=== PATIENT | female | born 1960 | race Caucasian/White ===

== ENCOUNTER 2016-06-13 11:43 | Emergency (ER) | payer MEDICARE, MEDICAID ==
[2016-06-13 13:17] VITALS: BP 156/85
--- NOTE | 2016-06-13 13:36 | UC ---
Respiratory Complaint HPI - HPI Summary HPI Summary: 4 days of worsening cough, wheeze-concerned about Acute Bronchitis has not used Albuterol though this episode of illness--temperature has not been over 99.5 - History of Current Complaint Chief Complaint: UCRespiratory Stated Complaint: URI Time Seen by Provider: 06/13/16 13:29 Hx Obtained From: Patient ?: No Onset/Duration: Gradual Onset, Lasting Days - 4, Still Present Timing: Constant Severity Initially: Mild Severity Currently: Moderate Character: Cough: Nonproductive Aggravating Factors: Deep Breaths, Recumbent Position Alleviating Factors: Nothing Associated Signs And Symptoms: Positive: Chills, Pleuritic Chest Pain, URI, Nasal Congestion, Sinus Discomfort - Allergies/Home Medications Allergies/Adverse Reactions: Allergies Allergy/AdvReac Type Severity Reaction Status Date / Time Erythromycin Allergy Severe ITCHING Verified 08/11/14 06:21 AND VOMITING Penicillins Allergy Severe Facial Verified 08/11/14 06:21 Redness/Flushing Doxycycline Allergy Nausea And Verified 08/11/14 06:21 Vomiting NSAIDs Allergy AVOID DUE Verified 08/11/14 06:21 TO HX OF STOMACH ULCER Home Medications: Home Medications Pseudoephedrine-Guaifenesin [Mucinex D 60-600 mg] 1 tab PO 06/13/16 [History] PMH/Surg Hx/FS Hx/Imm Hx Previously Healthy: No Endocrine History Of: Denies: Diabetes, Thyroid Disease Cardiovascular History Of: Reports: Hypertension - ON MEDS Denies: Cardiac Disorders Respiratory History Of: Reports: COPD, Bronchitis - LAST TIME 2 YEARS AGO Denies: Asthma GI/ History Of: Reports: Ulcer - HX OF Psychological History Of: Reports: Anxiety - ON MEDS, Depression - ON MEDS Cancer History Of: Denies: Breast Cancer - Surgical History Surgical History: Yes Surgery Procedure, Year, and Place: 2008 [place], [facility] [place] LEFT ANKLE SURGERY (PLATE & 7 SCREWS), [facility] [place] LEFT [place]KLE [place], [place]. 2010 THROAT POLY[place], [facility] [place]. 2010 LAPAROSCOPIC CHO[place]CYSTECTOMY, [facility] [place] - Family History Known Family History: Positive: None Family History: no report of cardiovascular issues in family lineage - Social History Occupation: Unemployed Lives: With Family Alcohol Use: None Substance Use Type: None Smoking Status (MU): Former Smoker Type: Cigarettes Amount Used/How Often: 1PCK/DAY Length of Time of Smoking/Using Tobacco: 40 Have You Smoked in the Last Year: No When Did the Patient Quit Smoking/Using Tobacco: 06/18/2012 Household Exposure Type: Cigarettes Review of Systems Constitutional: Negative Skin: Negative Eyes: Negative ENT: Nasal Discharge Respiratory: Cough Cardiovascular: Negative Gastrointestinal: Negative Genitourinary: Negative Motor: Negative Neurovascular: Negative Musculoskeletal: Negative Neurological: Negative Psychological: Negative All Other Systems Reviewed And Are Negative: Yes Physical Exam Triage Information Reviewed: Yes Appearance: Well-Nourished, Ill-Appearing - mild, Obese Vital Signs: Initial Vital Signs Temp 99.2 F 06/13/16 13:14 Pulse 115 06/13/16 13:14 Resp 18 06/13/16 13:14 BP 156/85 06/13/16 13:14 Pulse Ox 96 06/13/16 13:14 Vital Signs Reviewed: Yes Eye Exam: Normal Eyes: Positive: Conjunctiva Clear ENT Exam: Normal ENT: Positive: Hearing grossly normal, Nasal congestion, Nasal drainage, TMs normal. Negative: Tonsillar swelling, Tonsillar exudate, Trismus, Muffled/ hoarse voice Neck exam: Normal Neck: Positive: Supple, Nontender, No Lymphadenopathy Respiratory Exam: Normal Respiratory: Positive: Chest non-tender, Lungs clear, No respiratory distress, No accessory muscle use, Wheezing Cardiovascular Exam: Normal Cardiovascular: Positive: No Murmur, Pulses Normal, Brisk Capillary Refill, Tachycardia Musculoskeletal Exam: Normal Musculoskeletal: Positive: Strength Intact, ROM Intact, No Edema Neurological Exam: Normal Neurological: Positive: Alert, Muscle Tone Normal Psychological Exam: Normal Skin Exam: Normal UC Diagnostic Evaluation - Laboratory O2 Sat by Pulse Oximetry: 96 Respiratory Course/Dx - Course Course Of Treatment: albuterol, zithromax, prednisone,robitussin & codiene, increase fluids follow with pcp - Differential Dx/Diagnosis Differential Diagnosis/HQI/PQRI: Asthma, Bronchitis, Lower Resp Infection, Sinusitis Provider Diagnoses: Acute exacerbation of COPD, Bronchitis Discharge - Discharge Plan Condition: Stable Disposition: HOME Prescriptions: Albuterol HFA INHALER* [Ventolin HFA Inhaler*] 2 puff INH Q4H PRN #1 mdi PRN Reason: cough Azithromycin TAB* [Zithromax TAB (Z-GAGAN) 250 mg #6 tabs] 2 tab PO .TODAY, THEN 1 DAILY #1 gagan guaiFENesin/CODIEN 100MG-10MG* [Robitussin AC 100Mg-10Mg*] 10 ml PO Q4H PRN #90 ml MDD 40ml PRN Reason: cough predniSONE TAB* [Deltasone TAB*] 10 mg PO DAILY #26 tab Patient Education Materials: How to Use a Metered-Dose Inhaler (ED), Acute Bronchitis (ED), Bronchospasm (ED) Referrals: Singh Sánchez MD [Medical Doctor] - 5 Days
== END 2016-06-13 13:55 | disposition home or self-care (01) ==
LOC: UCEAST 11:43
DX: J44.1 Chronic obstructive pulmonary disease with (acute) exacerbation (principal); J40 Bronchitis, not specified as acute or chronic; Z88.1 Allergy status to other antibiotic agents; Z88.6 Allergy status to analgesic agent; Z88.0 Allergy status to penicillin; Z87.891 Personal history of nicotine dependence
CPT/HCPCS: 99212; G0463

== ENCOUNTER 2018-02-26 14:10 | Emergency (ER) | payer MEDICARE, MEDICAID ==
[2018-02-26 14:24] VITALS: BP 165/79
[2018-02-26] MEDS ORDERED: NS 0.9% 1000 ML* 1,000 ML ONE (14:58)
[2018-02-26] MEDS ORDERED: LORazepam INJ* 2 MG/ML 1 ML VIAL IV PUSH ONE (14:58)
--- NOTE | 2018-02-26 15:07 | UC ---
Abdominal Pain Female HPI - HPI Summary HPI Summary: The patient is a 57 yo female who presents with the onset of 7/10 crampy abd pain that started about 4AM She has had 8-10 episodes of diarrhea and has had one episode of vomiting About 11 AM she developed left arm numbness and weakness as well as mild left sided CP. The patient normally takes 2 mg of Xanax at bedtime and has done so for about the last 6 months. Last night she decided not to take her Xanax. She denies any headache. She has not had any fever or chills. He states that she feels very anxious. She has had no UTI symptoms. - History of Current Complaint Chief Complaint: UCGeneralIllness Stated Complaint: ARM NUMB DISORIENTED Time Seen by Provider: 02/26/18 14:24 Hx Obtained From: Patient Onset/Duration: Gradual Onset, Lasting Hours Timing: Constant Severity Initially: Moderate Severity Currently: Moderate Pain Intensity: 7 Pain Scale Used: 0-10 Numeric Location: Diffuse Character: Cramping Aggravating Factor(s): Food Alleviating Factor(s): Nothing Associated Signs and Symptoms: Positive: Dizzy, Nausea, Vomiting, Diarrhea Allergies/Adverse Reactions: Allergies Allergy/AdvReac Type Severity Reaction Status Date / Time doxycycline Allergy Intermediate Nausea Verified 02/26/18 14:27 erythromycin base Allergy Intermediate ithching Verified 02/26/18 14:26 vomitting NSAIDS (Non-Steroidal Allergy Intermediate avoid Verified 02/26/18 14:27 Anti-Inflamma ulcers Penicillins Allergy Intermediate facial Verified 02/26/18 14:26 redness vomitting Home Medications: Home Medications ALPRAZolam [Xanax] 1 mg PO TID MDD 3 02/26/18 [History Confirmed 02/26/18] Vortioxetine Hydrobromide [Trintellix] 5 mg PO DAILY WITH MEAL 02/26/18 [ History Confirmed 02/26/18] PMH/Surg Hx/FS Hx/Imm Hx Previously Healthy: Yes Cardiovascular History: Hypertension GI/ History: Other Other GI/ History: chronic post parandial abd pain Psychological History: Anxiety, Depression - Surgical History Surgical History: Yes Surgery Procedure, Year, and Place: 2008 HYSTERECTOMY, [facility] [place]. 2009 LEFT ANKLE SURGERY (PLATE & 7 SCREWS), [facility] [place]. 2009 LEFT ANKLE SURGERY, [place]. 2010 THROAT POLYPS REMOVED, [facility] [place]. 2010 LAPAROSCOPIC CHOLECYSTECTOMY, [facility] [place] - Family History Known Family History: Positive: Hypertension Family History: no report of cardiovascular issues in family lineage - Social History Alcohol Use: None Substance Use Type: None Smoking Status (MU): Former Smoker Type: Cigarettes Amount Used/How Often: 1PCK/DAY Length of Time of Smoking/Using Tobacco: 40 Have You Smoked in the Last Year: No When Did the Patient Quit Smoking/Using Tobacco: 06/18/2012 Household Exposure Type: Cigarettes Review of Systems Constitutional: Negative Skin: Negative Eyes: Negative ENT: Negative Respiratory: Negative Cardiovascular: Chest Pain Gastrointestinal: Abdominal Pain, Vomiting, Diarrhea, Nausea Genitourinary: Negative Motor: Negative Neurovascular: Negative Musculoskeletal: Negative Neurological: Weakness - left arm, Numbness - left arm Psychological: Anxious Is Patient Immunocompromised?: Yes All Other Systems Reviewed And Are Negative: Yes Physical Exam Triage Information Reviewed: Yes Appearance: Well-Appearing, No Pain Distress, Well-Nourished Vital Signs: Initial Vital Signs Temp 99.1 F 02/26/18 14:15 Pulse 105 02/26/18 14:15 Resp 24 02/26/18 14:15 BP 165/79 02/26/18 14:15 Pulse Ox 99 02/26/18 14:15 Eyes: Positive: Conjunctiva Clear ENT: Positive: Hearing grossly normal. Negative: Nasal congestion, Nasal drainage, Trismus, Muffled voice, Hoarse voice, Dental tenderness, Sinus tenderness Neck: Positive: Supple, Nontender, No Lymphadenopathy Respiratory: Positive: Lungs clear, Normal breath sounds, No respiratory distress Cardiovascular: Positive: RRR, No Murmur, Pulses Normal Abdomen Description: Positive: Soft. Negative: Nontender - diffusely tender, CVA Tenderness (R), CVA Tenderness (L) Bowel Sounds: Positive: Present Musculoskeletal: Positive: ROM Intact, No Edema Neurological: Positive: Alert Psychological Exam: Normal Skin Exam: Normal Diagnostics - Laboratory Diagnostic Studies Completed/Ordered: BS 167 - EKG Cardiac Rate: NL Cardiac Rhythm: Sinus: Normal, AFib: Normal, Junctional: Normal, LBBB: Normal, Other Rhythm: Normal Ectopy: None ST Segment: Normal Abd Pain Female Course/Dx - Course Course Of Treatment: D/W Shon Morton. To [facility] [place] er via EMS - Differential Dx/Diagnosis Provider Diagnoses: acute abdominal pain and diarrhea. vomiting. left arm numbness and subjective weakness Discharge - Sign-Out/Discharge Documenting (check all that apply): Patient Departure All imaging exams completed and their final reports reviewed: No Studies - Discharge Plan Condition: Stable Disposition: TRANS HIGHER LVL OF CARE FAC Referrals: Sam De Leon MD [Primary Care Provider] - - Billing Disposition and Condition Condition: STABLE Disposition: Trans Higher Lvl of Care Fac
== END 2018-02-26 15:40 | disposition short-term general hospital (02) ==
LOC: UCEAST 14:10
DX: R10.9 Unspecified abdominal pain (principal); R11.10 Vomiting, unspecified; R20.0 Anesthesia of skin; R19.7 Diarrhea, unspecified; R53.1 Weakness; Z88.0 Allergy status to penicillin; Z88.1 Allergy status to other antibiotic agents; Z88.6 Allergy status to analgesic agent; I10 Essential (primary) hypertension; Z87.891 Personal history of nicotine dependence
CPT/HCPCS: 93005; 96374; 99213; G0463; J2060

== ENCOUNTER 2018-02-26 16:02 | Emergency (ER) | payer MEDICARE, MEDICAID ==
--- NOTE | 2018-02-26 16:32 | ED ---
Complex/Multi-Sys Presentation - HPI Summary HPI Summary: This patient is a 57 year old female BIBA to [facility] with a chief complaint of panic attack [employer]. Patient states that she stopped taking her Xanax last night after taking it for months and experienced withdrawal symptoms. Patient states that she woke up around 0400 feeling nauseous ill, but ignored the sx and went to get a cup of coffee. Afterwards, she felt more ill and experienced diarrhea 3 -4 times. The pain is rated 7/10 in severity. Symptoms aggravated by nothing. Symptoms alleviated by nothing. Patient additionally reports dizziness, nausea, vomiting, diarrhea, diaphoresis. Patient states that she feels much improved after being hydrated. - History Of Current Complaint Chief Complaint: EDGeneral Time Seen by Provider: 02/26/18 16:23 Hx Obtained From: Patient Onset/Duration: Lasting Days, Still Present Timing: Constant Severity Currently: Mild Severity Initially: Moderate Aggravating Factor(s): N/A Alleviating Factor(s): N/A Associated Signs And Symptoms: Positive: Other - dizziness, nausea, vomiting, diarrhea, diaphoresis - Allergies/Home Medications Allergies/Adverse Reactions: Allergies Allergy/AdvReac Type Severity Reaction Status Date / Time doxycycline Allergy Intermediate Nausea Verified 02/26/18 14:27 erythromycin base Allergy Intermediate ithching Verified 02/26/18 14:26 vomitting NSAIDS (Non-Steroidal Allergy Intermediate avoid Verified 02/26/18 14:27 Anti-Inflamma ulcers Penicillins Allergy Intermediate facial Verified 02/26/18 14:26 redness vomitting PMH/Surg Hx/FS Hx/Imm Hx Previously Healthy: No Endocrine/Hematology History: Denies: Hx Diabetes, Hx Thyroid Disease Cardiovascular History: Reports: Hx Hypertension - ON MEDS, Other Cardiovascular Problems/Disorders - NUCLEAR STRESS TEST DONE 2-3 MONTHS AGO, STATES NO PROBLEMS Respiratory History: Reports: Hx Chronic Obstructive Pulmonary Disease (COPD), Hx Sleep Apnea - TEST 2 WEEKS AGO, Other Respiratory Problems/Disorders - HX COPD Denies: Hx Asthma GI History: Reports: Hx Gastroesophageal Reflux Disease - CONTROL WITH MEDS, Hx Irritable Bowel, Hx Ulcer - HX OF, Other GI Disorders - Hx ulcers Musculoskeletal History: Reports: Hx Arthritis - GENERALIZED, Other Musculoskeletal History - SEVERE RIGHT SHOULDER PAINS - UNKNOWN ETIOLOGY Sensory History: Denies: Hx Contacts or Glasses, Hx Hearing Aid Opthamlomology History: Denies: Hx Contacts or Glasses Psychiatric History: Reports: Hx Anxiety - ON MEDS, Hx Depression - ON MEDS - Cancer History Cancer Type, Location and Year: Cervical cancer/hysterectomy Hx Chemotherapy: No Hx Radiation Therapy: No - Surgical History Surgery Procedure, Year, and Place: [place] [facility] [place]KLE [place] (PLATE & 7 SCREWS), [facility] [place] LEFT [place]KLE [place] [facility] [place] LAP[place]IC [place] [facility] [place]x Anesthesia Reactions: No Infectious Disease History: No Infectious Disease History: Denies: Hx Hepatitis, Hx Human Immunodeficiency Virus (HIV), Traveled Outside the [place] in Last 30 Days - Family History Known Family History: Positive: Hypertension Family History: no report of cardiovascular issues in family lineage - Social History Alcohol Use: None Hx Substance Use: No Substance Use Type: Reports: None Hx Tobacco Use: Yes Smoking Status (MU): Former Smoker Type: Cigarettes Amount Used/How Often: 1PCK/DAY Length of Time of Smoking/Using Tobacco: 40 Have You Smoked in the Last Year: No Review of Systems Positive: Skin Diaphoresis. Negative: Fever Positive: Vomiting, Diarrhea, Nausea Neurological: Other - Dizziness Positive: Other - Panic attack All Other Systems Reviewed And Are Negative: Yes Physical Exam - Summary Physical Exam Summary: Appearance: Well-appearing, Well-nourished, lying in bed comfortably Skin: Warm, dry, no obvious rash Eyes: sclera anicteric, no conjunctival pallor ENT: mucous membranes moist, pharynx appears normal Neck: Supple, nontender Respiratory: Clear to auscultation, no signs of respiratory distress Cardiovascular: Normal S1, S2. No murmurs. Normal distal pulses in tibial and radial bilaterally. Abdomen: Soft, nontender, normal active bowel sounds present Musculoskeletal: Normal, Strength/ROM Intact Neurological: A&Ox3, awake and alert, mentation is normal, speech is fluent and appropriate Psychiatric: affect is normal, does not appear anxious or depressed Triage Information Reviewed: Yes Vital Signs On Initial Exam: Initial Vitals Temp Pulse Resp BP Pulse Ox 98.2 F 68 16 160/71 99 02/26/18 16:14 02/26/18 16:14 02/26/18 16:14 02/26/18 16:14 02/26/18 16:14 Vital Signs Reviewed: Yes Diagnostics - Vital Signs Vital Signs Temp Pulse Resp BP Pulse Ox 02/26/18 16:14 98.2 F 68 16 160/71 99 - Laboratory Lab Statement: Any lab studies that have been ordered have been reviewed, and results considered in the medical decision making process. Complex Multi-Symp Course/Dx Assessment/Plan: This patient is a 57 year old female BIBA to [facility] with a chief complaint of panic attack [employer]. Patient states that she stopped taking her Xanax last night after taking it for months and experienced withdrawal symptoms. Patient will be discharged with a dx of acute diarrhea. Patient is advised to follow up with PCP in 3 days. The patient is agreeable with this plan. Clinically she does not appear volume depleted and I do not believe she requires any laboratory evaluation, nor does she need any IV fluids. The diarrhea appears to be consequent to taking laxatives yesterday, and her withdrawal symptoms are quite mild. - Diagnoses Provider Diagnoses: Diarrhea, Withdrawal from benzodiazepine Discharge - Sign-Out/Discharge Documenting (check all that apply): Patient Departure - Discharge Plan Condition: Good Disposition: HOME Patient Education Materials: Acute Diarrhea (ED) Referrals: Sam De Leon MD [Primary Care Provider] - Additional Instructions: I don't think all your problems are from stopping the xanax. That said, you should not suddenly stop taking xanax if you have been on it for awhile. You should taper the dose down slowly, at least over a couple of weeks. For now get plenty of fluids until the diarrhea starts to subside. - Billing Disposition and Condition Condition: GOOD Disposition: Home - Attestation Statements Document Initiated by Barbara: Yes Documenting Scribe: Denise Amaya Provider For Whom Barbara is Documenting (Include Credential): Sae Peter MD Scribe Attestation: Denise Huggins, scribed for Sae Peter MD on 02/26/18 at 1742. Scribe Documentation Reviewed: Yes Provider Attestation: The documentation as recorded by the Denise hernandez accurately reflects the service I personally performed and the decisions made by me, Sae Peter MD
[2018-02-26 17:49] VITALS: BP 164/79
== END 2018-02-26 17:48 | disposition home or self-care (01) ==
LOC: ED 16:02
DX: F19.230 Other psychoactive substance dependence with withdrawal, uncomplicated (principal); R19.7 Diarrhea, unspecified; I10 Essential (primary) hypertension; J44.9 Chronic obstructive pulmonary disease, unspecified; K21.9 Gastro-esophageal reflux disease without esophagitis; F41.9 Anxiety disorder, unspecified; F32.9 Major depressive disorder, single episode, unspecified; Z87.891 Personal history of nicotine dependence; R10.9 Unspecified abdominal pain; R11.10 Vomiting, unspecified; R20.0 Anesthesia of skin; R53.1 Weakness; Z88.0 Allergy status to penicillin; Z88.1 Allergy status to other antibiotic agents; Z88.6 Allergy status to analgesic agent
CPT/HCPCS: 93005; 96374; 99213; 99282; G0463; J2060

== ENCOUNTER 2018-04-06 10:16 | Day surgery (SDC) | payer MEDICARE, MEDICAID ==
[~2018-04-06 10:16] MED LIST: Buffered Lidocaine 0.9% SYRIN* 5 ML/SYR SYRINGE INTRADERM ONE
[2018-04-06] MEDS ORDERED: DiMENhydriNATE IV* 50 MG/ML VIAL IV PUSH PRN (11:19)
[2018-04-06] MEDS ORDERED: Naloxone* 0.4 MG/ML 1 ML VIAL IV PRN (11:19)
[2018-04-06] MEDS ORDERED: Buffered Lidocaine 0.9% SYRIN* 5 ML/SYR SYRINGE ONE (11:22)
[2018-04-06] MEDS ORDERED: KETAMINE HCL* 50 MG/ML 10 ML VIAL ONE (11:47)
[2018-04-06] MEDS ORDERED: Ondansetron INJ* 2 MG/ML VIAL ONE (11:47)
[2018-04-06] MEDS ORDERED: Midazolam* 1 MG/ML 5 ML VIAL (5 MG) ONE ×2 (11:47→12:07)
[2018-04-06] MEDS ORDERED: Lidocaine 2% PF * 5 ML VIAL ONE (11:47)
[2018-04-06] MEDS ORDERED: Propofol* 10 MG/ML 20 ML BTL IV PUSH ONE ×2 (11:47→12:51)
[2018-04-06] MEDS ORDERED: fentaNYL* 50 MCG/ML 2 ML VIAL (100 MCG VIAL) ONE (11:47)
[2018-04-06 13:29] VITALS: BP 122/68
--- NOTE | 2018-04-07 03:34 | PRO ---
CC: Dr. Sam De Leon. * DATE OF PROCEDURE: 04/06/18 [facility] PROCEDURE: Colonoscopy with polypectomy. REFERRING PROVIDER: Dr. Sam De Leon. INDICATION: Longstanding abdominal pain, particularly in lower left quadrant, constipation, gas, bloating. MEDICATIONS GIVEN: By Anesthesia. DESCRIPTION OF PROCEDURE: Full disclosure of risks were reviewed with the patient as detailed on the consent form. The patient was placed in the left lateral decubitus position and monitored with continuous pulse oximetry, capnography, interval blood pressure monitoring, and direct observation. After anorectal examination was performed, the adult colonoscope was inserted into the rectum and advanced under direct vision to the level of the cecum. The cecum was slowly inflated allowing a complete view including the medial wall between the IC valve and the appendiceal orifice. Quality of the prep was very good. A careful inspection was made as the colonoscope was withdrawn. A retroflexed view of the rectum was performed. Findings and interventions are described below. The patient tolerated the procedure well and was recovered in the GI recovery area. FINDINGS: Anorectal exam was unremarkable. Scope was inserted into the rectum and slowly advanced through the left colon. The patient was quite uncomfortable and required increased sedation during examination of the left colon. There was sensation of mild resistance, although there was never a partial or fixed loop encountered. Suspect adhesion-related disease in the pelvis contributed to the difficult exam in the left colon. With the use of abdominal pressure, scope was able to advance throughout the remainder of the colon to the level of the cecum. The colonic mucosa was then closely examined as the scope was withdrawn. There was an 8- to 10-mm colon polyp in the ascending colon, which was removed with cold snare polypectomy. Scope was then further withdrawn and there were 2 transverse colon polyps. One of these measured 6 mm and was removed with cold snare polypectomy. The other was 3 mm and was removed with jumbo biopsy forceps. The scope was withdrawn into the sigmoid where mild/moderate diverticular disease was noted. Again, the patient was quite uncomfortable in this area, despite having received a significant amount of anesthesia she did stir at times and appeared uncomfortable. There was a 2-mm rectal polyp, that was removed with jumbo biopsy forceps. Retroflexion in the rectum noted very small hypertrophied anal papilla. No significant hemorrhoids. Scope was then withdrawn from the patient. The patient tolerated the procedure well and was recovered in the GI recovery area. IMPRESSION: 1. Four colon polyps removed as above. 2. [id number] sigmoid diverticulosis. 3. Difficult colonoscopy, particularly in the left colon. There was mild amount of resistance and tightness as the scope moved through the left colon suggestive of possible pelvic adhesion disease related to her prior hysterectomy. It is possible that this is contributing to some of her chronic abdominal pain. FOLLOWUP: 1. Await pathology. 2. Repeat colonoscopy in 3 to 5 years depending on pathology. We will recommend repeat colonoscopy be performed with anesthesia as well. 3. The patient will follow up in clinic. We will discuss if additional workup is needed or plan to help alleviate some of her chronic GI symptoms. Suspect this may include improving her constipation management. May also consider referral for anorectal manometry as she described sitting on the toilet multiple times a day to strain even though she will often pass softer stools. She described it as an incomplete sense of evacuation. This clinical history does raise some suspicion for pelvic floor dyssynergia. Thank you very much for this referral. [id number]/[id number] #: [id number] ALMA ROSA
--- NOTE | 2018-04-07 11:02 | PRO ---
CC: Sam De Leon MD * DATE OF PROCEDURE: 04/06/18 [facility] PROCEDURE: EGD with biopsy. REFERRING PROVIDER: Sam De Leon MD. INDICATION: Abdominal pain, gas, bloating, constipation. MEDICATIONS GIVEN: Anesthesia Services. DESCRIPTION OF PROCEDURE: Full disclosure of risks was reviewed with the patient as detailed on the consent form. The patient was placed in the left lateral decubitus position and monitored with continuous pulse oximetry, interval blood pressure monitoring, and direct observation. A bite-block was placed between the teeth. An Olympus gastroscope was then inserted into the patient's mouth and advanced down the esophagus, into the stomach, and into the distal duodenum. Findings are detailed below. FINDINGS: Esophagus was a normal tubular structure without rings, strictures, or masses. GE junction was regular and occurred at 34 cm. There was a hiatal hernia with the top of the gastric folds occurring at 38 cm. Scope was advanced into the stomach. Stomach was examined in the forward and retroflex views. There was mild gastric antral erythema. Biopsies obtained. We will rule out H. pylori. No erosions or ulcers noted. Scope was then advanced through the duodenum. Duodenal mucosa was normal in appearance. Biopsies obtained to rule out celiac disease given bloating, discomfort. Scope was then withdrawn from the patient. The patient tolerated the procedure well. Colonoscopy was then performed. See separate procedure report. IMPRESSION: 1. Hiatal hernia. 2. Mild antral gastric erythema. FOLLOWUP: 1. Await pathology. 2. Continue to complete colonoscopy, see separate note. [id number]/CPS #: [id number] MTDD
== END 2018-04-06 13:47 | disposition home or self-care (01) ==
LOC: OR 10:16
PROVIDERS: ATTEND Internal Medicine Gastroenterology
DX: R10.84 Generalized abdominal pain (principal); R63.4 Abnormal weight loss; K21.9 Gastro-esophageal reflux disease without esophagitis; K59.00 Constipation, unspecified; K58.9 Irritable bowel syndrome, unspecified; D12.2 Benign neoplasm of ascending colon; K44.9 Diaphragmatic hernia without obstruction or gangrene; R14.0 Abdominal distension (gaseous); D12.3 Benign neoplasm of transverse colon; R73.03 Prediabetes; Z85.41 Personal history of malignant neoplasm of cervix uteri; Z87.11 Personal history of peptic ulcer disease; J44.9 Chronic obstructive pulmonary disease, unspecified; Z87.891 Personal history of nicotine dependence; F31.9 Bipolar disorder, unspecified; I10 Essential (primary) hypertension; F41.8 Other specified anxiety disorders
CPT/HCPCS: 88305; J2250; J2405; J2704; J3010